=== PATIENT | male | born 1950 | race Caucasian/White ===

== ENCOUNTER 2023-01-04 09:31 | Emergency (ER) | payer OTHER ==
[~2023-01-04] VITALS: Ht 180.3 cm; Wt 85.0 kg
[2023-01-04] VITALS (12 sets, daily range): BP systolic 128–174; BP diastolic 67–81
[~2023-01-04 09:31] MED LIST: CITALOPRAM40 MG PO; CLONAZEPAM1 MG PO; LIPITOR80 MG PO; MEDDOSEPAK PO; METFORMIN500 MG PO; PRILOSEC20 MG/CAP PO; PROVENTIL HFA IN; SEROQUEL100 MG PO; ZITHROMAX250 MG PO
[2023-01-04] MEDS ORDERED: LISINOPRIL2.5 MG PO (09:56)
[2023-01-04] MEDS ORDERED: BACLOFEN10 MG PO (09:57)
[2023-01-04] MEDS ORDERED: ASPIRIN81 MG PO (09:57)
[2023-01-04] MEDS ORDERED: LIPITOR10 M1 PO (09:57)
[2023-01-04] MEDS ORDERED: MAG-200200 MG (09:58)
[2023-01-04] MEDS ORDERED: DECADRON4 MG PO (12:12)
== END 2023-01-04 12:48 | disposition home or self-care (01) | DRG 563 ==
LOC: ED 09:31
DX: S39.012A Strain of muscle, fascia and tendon of lower back, initial encounter (principal); I69.359 Hemiplegia and hemiparesis following cerebral infarction affecting unspecified side; F17.210 Nicotine dependence, cigarettes, uncomplicated; X50.9XXA Other and unspecified overexertion or strenuous movements or postures, initial encounter